=== PATIENT | female | born 1970 | race Caucasian/White ===

== ENCOUNTER → 2016-12-05 | Outpatient (CLI) | payer MEDICAID ==
[~2016-12-05] MED LIST: LEVOTHYROXIN0.075 M1 PO; LISINOPRIL 10MG10 MG PO
--- NOTE | 2016-12-05 15:28 | RADIOLOGY REPORT PS360 ---
COCCYX 2 VIEW HISTORY: COCCYGODYNIA COMPARISON: None FINDINGS: No fracture or dislocation is evident. No significant degenerative change. No lytic or blastic change. Unremarkable soft tissues IMPRESSION: Negative coccyx
== END ==
LOC: RAD 14:46
DX: M53.3 Sacrococcygeal disorders, not elsewhere classified (principal)

== ENCOUNTER → 2017-04-16 | Outpatient (CLI) | payer MEDICAID ==
--- NOTE | 2017-04-16 11:34 | RADIOLOGY REPORT PS360 ---
US PELVIS-TRANSVAGINAL ONLY HISTORY: Right lower quadrant pain, abnormal periods RT LOWER QUAD PAIN ORDERING PHYSICIAN: JORGE Graham PATIENT AGE: 46 years COMPARISON: 12/12/2016 FINDINGS: The uterus is bulky measuring 10 x 6 x 7 cm. Combined and medial thickness is 15 mm which is thickened and somewhat hyperechoic. Nabothian cysts are once again noted. The left ovary is 3.7 x 3.8 cm and contains a 3 cm cyst. The right ovary is 2.5 x 2 cm and has an unremarkable appearance. There is a small amount of fluid in the cul-de-sac. IMPRESSION: 1. Continued bulky uterus with thickened endometrium. 2. 3 cm left ovarian cyst
== END ==
LOC: RAD 09:27
DX: R10.31 Right lower quadrant pain (principal)